=== PATIENT | female | born 1970 | race Caucasian/White ===

== ENCOUNTER 2016-12-14 08:34 | Emergency (ER) | payer OTHER ==
[~2016-12-14] VITALS: Ht 172.7 cm; Wt 81.8 kg
[~2016-12-14 08:34] MED LIST: AUGMENTIN875TAB OR; FERROUS SULF325 M2 PO; FLEXERIL5 M1 PO; MACRODANTIN100 MG PO; METRONIDAZOL500 MG PO; NAPROSYN500 MG PO; NO HOME MEDICATION; PYRIDIUM200 MG PO; ZOFRAN ODT4 MG PO; no meds
[2016-12-14] MEDS ORDERED: TRAMADOL HCL50 MG PO (08:57)
[2016-12-14] MEDS ORDERED: BELVIQ10 MG PO (08:57)
[2016-12-14 09:43] VITALS: BP 130/84
== END 2016-12-14 09:57 | disposition home or self-care (01) | DRG 605 ==
LOC: ED 08:34
PROC: 0HQGXZZ Repair Left Hand Skin, External Approach (ICD-10-PCS; principal; 2016-12-14)
DX: S61.217A Laceration without foreign body of left little finger without damage to nail, initial encounter (principal); W26.0XXA Contact with knife, initial encounter; Y93.89 Activity, other specified; Y92.89 Other specified places as the place of occurrence of the external cause